=== PATIENT | male | born 2000 | race Caucasian/White ===

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

== ENCOUNTER 2018-08-07 01:40 | Emergency (ER) | payer MEDICAID ==
[2018-08-07 01:40] VITALS: BMI 27.3
[2018-08-07] MEDS ORDERED: Iohexol 240 (50 ml) PO STA (01:57)
[2018-08-07] MEDS ORDERED: Sodium Chloride 0.9% 1,000 ML IV STA (01:57)
[2018-08-07 03:05] LABS: URINE BILIRUBIN NEGATIVE (NEGATIVE); URINE BLOOD NEGATIVE (NEGATIVE); URINE CLARITY Clear (Clear); URINE COLOR Straw (YELLOW); URINE GLUCOSE (UA) NORMAL (Normal); URINE LEUKOCYTE ESTERASE NEG Leu/uL (Negative); URINE PROTEIN NEGATIVE (NEGATIVE); URINE UROBILINOGEN NORMAL mg/dL (0.2-1.0)
[2018-08-07 03:08] LABS: BASO % 0.4 % (0.0-2.0); EOS # 0.2 K/uL (0.0-0.7); EOS % 2.4 % (0.0-4.0); HEMOGLOBIN 15.1 g/dL (12.0-18.0); LYMPH # 2.7 K/uL (1.0-4.3); LYMPH % 31.4 % (20.0-40.0); MEAN CELL VOLUME 84.4 fL (80.0-94.0); MEAN CORPUSCULAR HEMOGLOBIN 29.2 pg (27.0-31.0); MEAN CORPUSCULAR HGB CONC 34.7 g/dL (33.0-37.0); MEAN PLATELET VOLUME 7.2 fL (7.2-11.7); MONO # 0.8 K/uL (0.0-0.8); MONO % 8.7 % (0.0-10.0); NEUT % 57.1 % (50.0-75.0); NRBC % 0.1 % (0.0-2.0); RBC 5.17 Mil/uL (4.40-5.90); RED CELL DISTRIBUTION WIDTH 13.1 % (11.5-14.5); WHITE BLOOD COUNT 8.7 K/uL (4.8-10.8)
[2018-08-07 03:18] LABS: ALB/GLOB RATIO 1.5 (1.0-2.1); ALBUMIN 4.6 g/dL (3.5-5.0); ALT/SGPT 26 U/L (21-72); AST/SGOT 36 U/L (17-59); BLOOD UREA NITROGEN 12 mg/dL (9-20); CALCIUM 9.1 mg/dl (8.6-10.4); GFR NON-AFRICAN AMERICAN > 60; LIPASE 63 U/L (23-300)
--- NOTE | 2018-08-07 03:50 | C.PDOC ---
History Of Present Illness 18 year old male presents with periumbilical pain for the past 4 days. Patient was seen by PMD, started on zofran and pepcid which he has been taking with no improvement. Denies fever, chills, nausea, or vomiting. Time Seen by Provider: 08/07/18 01:49 Chief Complaint (Nursing): Abdominal Pain History Per: Patient History/Exam Limitations: no limitations Onset/Duration Of Symptoms: Days (4) Current Symptoms Are (Timing): Still Present Location Of Pain/Discomfort: Periumbilical Radiation Of Pain To:: None Quality Of Discomfort: Unable To Describe Associated Symptoms: denies: Fever, Chills, Nausea, Vomiting Exacerbating Factors: None Alleviating Factors: None Recent travel outside of the [place]: No Past Medical History Reviewed: Historical Data, Nursing Documentation, Vital Signs Vital Signs: Last Vital Signs Temp 97.5 F L 08/07/18 01:48 Pulse 88 08/07/18 01:48 Resp 14 08/07/18 01:48 BP 156/85 H 08/07/18 01:48 Pulse Ox 100 08/07/18 01:48 Primary Care Provider: Clinic,[facility] - Medical History PMH: Denies: Chronic Kidney Disease Family History: States: Unknown Family Hx - Social History Hx Tobacco Use: No Hx Alcohol Use: Yes Hx Substance Use: No - Immunization History Hx Tetanus Toxoid Vaccination: No Hx Influenza Vaccination: No Hx Pneumococcal Vaccination: No Review Of Systems Constitutional: Negative for: Fever, Chills Cardiovascular: Negative for: Chest Pain, Palpitations Respiratory: Negative for: Cough, Shortness of Breath Gastrointestinal: Positive for: Abdominal Pain. Negative for: Nausea, Vomiting Genitourinary: Negative for: Dysuria, Hematuria Physical Exam - Physical Exam Appears: Non-toxic Skin: Normal Color, Warm Head: Atraumatic, Normacephalic Eye(s): bilateral: Normal Inspection Oral Mucosa: Moist Chest: Symmetrical, No Tenderness Cardiovascular: Rhythm Regular Respiratory: Normal Breath Sounds, No Rales, No Rhonchi, No Wheezing Gastrointestinal/Abdominal: Soft, Tenderness (Periumbilical and RLQ), No Guarding, No Rebound Back: No CVA Tenderness Neurological/Psych: Oriented x3, Normal Speech ED Course And Treatment - Laboratory Results Result Diagrams: 08/07/18 02:58 08/07/18 02:58 Lab Results: Total Bilirubin 0.3 mg/dL (0.2-1.3) 08/07/18 02:58 AST 36 U/L (17-59) 08/07/18 02:58 ALT 26 U/L (21-72) 08/07/18 02:58 Alkaline Phosphatase 85 U/L (38-126) 08/07/18 02:58 Total Protein 7.8 g/dL (6.3-8.3) 08/07/18 02:58 Albumin 4.6 g/dL (3.5-5.0) 08/07/18 02:58 Globulin 3.2 gm/dL (2.2-3.9) 08/07/18 02:58 Albumin/Globulin Ratio 1.5 (1.0-2.1) 08/07/18 02:58 Lipase 63 U/L (23-300) 08/07/18 02:58 Urine Color Straw (YELLOW) 08/07/18 02:58 Urine Clarity Clear (Clear) 08/07/18 02:58 Urine pH 6.0 (5.0-8.0) 08/07/18 02:58 Ur Specific [place] 1.002 (1.003-1.030) L 08/07/18 02:58 Urine Protein Negative mg/dL (NEGATIVE) 08/07/18 02:58 Urine Glucose (UA) Normal mg/dL (Normal) 08/07/18 02:58 Urine Ketones Negative mg/dL (NEGATIVE) 08/07/18 02:58 Urine Blood Negative (NEGATIVE) 08/07/18 02:58 Urine Nitrate Negative (NEGATIVE) 08/07/18 02:58 Urine Bilirubin Negative (NEGATIVE) 08/07/18 02:58 Urine Urobilinogen Normal mg/dL (0.2-1.0) 08/07/18 02:58 Ur Leukocyte Esterase Neg Ravinder/uL (Negative) 08/07/18 02:58 O2 Sat by Pulse Oximetry: 100 (Room air) Pulse Ox Interpretation: Normal - CT Scan/US CT abd/pel Other Rad Studies (CT/US): Read By Radiologist, Radiology Report Reviewed CT/US Interpretation: CT SCAN OF THE ABDOMEN AND PELVIS WITH CONTRAST. CLINICAL HISTORY: Abdominal pain. Vomiting. TECHNIQUE: Multiple axial and coronal CT images were obtained through the abdomen and pelvis after administration of intravenous and oral contrast material. COMMENTS: Diffuse thickening and enhancement of the wall of the gallbladder. Mild surrounding free fluid. Sonographic evaluation is suggested to exclude developing acute inflammatory pathology of the gallbladder. Uncomplicated colonic diverticulosis. Mild chronic changes of Scheuermann's disease. The liver is of uniform attenuation without mass or defect. There is no intra or extrahepatic biliary ductal dilatation. The spleen is normal. The pancreas is of normal contour and attenuation characteristics. There is no evidence of adrenal mass. Both kidneys demonstrate prompt and equal nephrograms. The kidneys are normal in size, shape and configuration. There is no evidence of renal or ureteral mass. No renal or ureteral calculi are identified. There is no hydroureter or hydronephrosis. No evidence for appendicitis. There is no bowel wall thickening. No evidence for small or large bowel obstruction. There is no evidence of abdominal ascites or lymphadenopathy. There is no evidence of intrinsic or extrinsic bladder mass. There is no pelvic ascites or lymphadenopathy. Images of the lung bases show no evidence of pleural or parenchymal mass. There are no pleural effusions. The bony structures are free of lytic or blastic lesions. IMPRESSION: Diffuse thickening and enhancement of the wall of the gallbladder. Mild surrounding free fluid. Sonographic evaluation is suggested to exclude developing acute inflammatory pathology of the gallbladder. Uncomplicated colonic div erticulosis. Progress Note: CT abd/pel, blood work, and urinalysis ordered. IV fluids, protonix, and zofran administered. After CT patient had an episode of vomiting again. Zofran [address] shows diffusely thickening and enhancement of the GB wall. RUQ US was recommended. At 7 am case was signed out to VINAYAK Santo. Disposition - Disposition Disposition Time: 07:00 Condition: FAIR Forms: [facility] (Estonian) - Clinical Impression Clinical Impression: Abdominal pain - PA / OPERATING ROOM RN / Resident Statement MD/DO has reviewed & agrees with the documentation as recorded. - Scribe Statement The provider has reviewed the documentation as recorded by the Scribe Rob Newby All medical record entries made by the Scribe were at my direction and p ersonally dictated by me. I have reviewed the chart and agree that the record accurately reflects my personal performance of the history, physical exam, medical decision making, and the department course for this patient. I have also personally directed, reviewed, and agree with the discharge instructions and disposition. Physician Patient Turnover Patient Signed Over To: Alexia Santo Handoff Comments: pending RUQ US Decision To Admit - . Patient Diagnosis: Abdominal pain
[2018-08-07] MEDS ORDERED: Iohexol 240 (50 ml) ONE (03:58)
[2018-08-07] MEDS ORDERED: Iodixanol 320 MG/ML 100 ML BOTTLE IV ONE (04:59)
[2018-08-07 06:05] VITALS: TEMP 98.2
--- NOTE | 2018-08-07 07:45 | CT ---
CT abdomen and pelvis HISTORY: Periumbilical pain. Comparison: None available. TECHNIQUE: Multiple contiguous axial images were performed through the abdomen and pelvis with the use of intravenous contrast. Subsequently, sagittal and coronal reformatted images were obtained. This CT exam was performed using one or more of the following dose reduction techniques: Automated exposure control, adjustment of the mA and/or kV according to patient size, and/or use of iterative reconstruction technique. Findings: Lung bases are clear. No pleural or pericardial effusion. Prominent liver. Mild intrahepatic biliary ductal dilatation. Gallbladder wall appears somewhat thickened and edematous with surrounding pericholecystic fluid. No gross calculi. These findings are nonspecific; however, an acute acalculous cholecystitis cannot entirely be excluded. Correlation with right upper quadrant abdominal ultrasound may be helpful if clinically indicated. Spleen is preserved. Adrenal glands are preserved. Pancreas is preserved. Distended stomach. Right kidney: No calculi or hydronephrosis. Left Kidney: No calculi or hydronephrosis. Urinary bladder is preserved. Heterogeneous prostate. Colonic diverticulosis. Fecal retention in the colon. Underdistended and or mildly thickened descending colon. Appendix appears grossly preserved. Appendiceal tip measures up to 6 millimeters, upper limits of normal. Clinical correlation. Few shotty para-aortic and inguinal lymph nodes. Few shotty mesenteric nodes. Degenerative changes the spine. Impression: 1. Gallbladder wall appears somewhat thickened and edematous with surrounding pericholecystic fluid. No gross calculi. These findings are nonspecific; however, an acute acalculous cholecystitis cannot entirely be excluded. Correlation with right upper quadrant abdominal ultrasound may be helpful if clinically indicated. 2. Prominent liver. Mild intrahepatic biliary ductal dilatation. 3. Colonic diverticulosis. Fecal retention in the colon. Underdistended and or mildly thickened descending colon. Clinical correlation. 4. Appendix appears grossly preserved. Appendiceal tip measures up to 6 millimeters, upper limits of normal. Clinical correlation. A preliminary report was generated at 5:49 a.m. on 08/07/[address] Yassine Deleon from [employer]
[2018-08-07] MEDS ORDERED: Morphine 4 MG/ML VIAL ONE (08:26)
[2018-08-07 08:29] VITALS: RESP 17
--- NOTE | 2018-08-07 08:34 | US ---
Date of service: 08/07/2018 HISTORY: abd pain, CT ? cholecystitis COMPARISON: None. TECHNIQUE: Sonographic evaluation of the right upper quadrant of the abdomen. FINDINGS: LIVER: Measures 16.1 cm in length. Diffusely increased echogenicity of the liver parenchyma. Consistent with fatty infiltration. Smooth contour. No mass. No biliary ductal dilatation. GALLBLADDER: Diffusely thickened gallbladder wall up to 9 mm. Nonspecific. No cholelithiasis. No pericholecystic fluid. Negative sonographic Morrissey sign. COMMON BILE DUCT: Measures mm. No stones. No dilatation. PANCREAS: 3 RIGHT KIDNEY: Measures 10.3 cm in length. Normal echogenicity. No calculus, mass, or hydronephrosis. AORTA: No aneurysmal dilatation. IVC: Unremarkable. OTHER FINDINGS: None . IMPRESSION: Nonspecific mural thickening of the gallbladder. Fatty infiltration of the liver. No evidence of cholelithiasis. Otherwise unremarkable.
[2018-08-07 11:35] VITALS: BP 124/72; PULSE 55; O2SAT 100
== END 2018-08-07 12:18 | disposition home or self-care (01) ==
LOC: C.ER 01:40
DX: R10.9 Unspecified abdominal pain (principal)
CPT/HCPCS: 74177; 76705; 80053; 81001; 83690; 85025; 96374; 96375; 99285; C9113; J1885; J2270; J2405; J2765; J7030; Q9966; Q9967